=== PATIENT | male | born 1990 | race Two or more races ===

== ENCOUNTER 2024-05-05 13:04 | Emergency (ER) | payer OTHER ==
[~2024-05-05] VITALS: Ht 165.1 cm; Wt 70.3 kg
[2024-05-05] MEDS ORDERED: KETOROLAC TROMETHAMINE 30 MG VIAL IM STA (13:53)
== END 2024-05-05 16:06 | disposition home or self-care (01) ==
LOC: ER 13:05
DX: M77.9 Enthesopathy, unspecified (principal)
CPT/HCPCS: 73130; 96372; 99283; J1885